=== PATIENT | female | born 1950 | race Caucasian/White ===

== ENCOUNTER 2020-02-14 07:43 | Outpatient (RCR) | payer OTHER, MEDICARE, MEDICAID, SELFPAY ==
[2020-01-03 15:17] VITALS: BMI 34.9
--- NOTE | 2020-01-16 10:29 | PCWOUND ---
WOCN NOTE Spoke with Lashonda nurse at [facility]. States wound on the sacrum is continuing to improve, states the depth is 4cm, but then length and width have come in so much that she can barely get her finger through it. Instructed to DC wound vac at this time and start packing wound with a Silver alginate hydrofiber rope. This will provide topical antimicrobial coverage while being able to wick exudate out of wound to promote healing. Instructed nurse that if they are unable to get the hydrofiber rope with silver, that they may use Silver gel to wound and lightly pack with a plain alginate rope. Lashonda stated understanding. Patient will keep her appointment for 02/14/20.
== END 2020-02-19 13:29 | disposition home or self-care (01) ==
LOC: ANHWOC 07:43
PROVIDERS: PCP Family Medicine; Visit Provider Family Medicine
DX: L89.153 Pressure ulcer of sacral region, stage 3 (principal)
CPT/HCPCS: 97606; 99212; A9270; G0463